=== PATIENT | female | born 1960 | race American Indian/Alaskan Native ===

== ENCOUNTER 2017-01-13 20:12 | Emergency (ER) | payer MEDICARE ==
--- NOTE | 2017-01-13 21:31 | Emergency Department Report ---
HPI - General Chief Complaint: Cardiac Arrest/CPR Time Seen by Provider: 01/13/17 21:00 - HPI HPI: This is a 56 year-old female presents to the emergency department from [place] by EMS in cardiac arrest. The patient appears to have a history of CVA, right-sided hemiparesis, dysphagia with PEG tube, chronic tracheostomy, atrial fibrillation. Apparently the patient just got back from [facility] today. The facility says that the patient was last seen alive about 10 minutes prior to the EMS call. The facility found her unresponsive and pulseless. EMS intubated the tracheostomy and started ACLS protocol. The patient was in asystole the entire time and they worked on her for about 30 minutes prior to presentation. She received 4 doses of epinephrine and one of sodium bicarbonate without any return of spontaneous circulation. ED Review of Systems ROS: Stated complaint: CARDIAC ARREST Other details as noted in HPI Comment: Unobtainable due to pts medical conditions Physical Exam - Physical Exam Physical Exam: GENERAL: Patient is ill-appearing and unresponsive. HENT: Normocephalic. Atraumatic. EYES: Pupils are fixed and dilated. NECK: Supple. Trachea appears midline with a tracheostomy and the ET tube in place in the tracheostomy. CHEST/LUNGS: No spontaneous breath sounds. HEART/CARDIOVASCULAR: No spontaneous heart sounds. ABDOMEN: Abdomen is soft and there is no abdominal distention. SKIN: Skin is cool but dry. NEURO: She is unresponsive to any type of verbal or painful stimuli. MUSCULOSKELETAL: There is no obvious deformity. ED Medical Decision Making - Medical Decision Making This patient presented in cardiac arrest after already having ACLS protocol going on for 30 minutes and a suspected asystole and/or cardiac arrest time of about 40 minutes. She started received ACLS protocol with 4 rounds of epinephrine and one of sodium bicarbonate. When she got to [facility] we continued ACLS protocol. She was asystole on the monitor. She was given a dose of epinephrine. At the next rhythm check, patient was still asystolic and pulseless. The ultrasound was then used to look at the patient's heart and there was no squeeze, movement or even flutter. At this point time of was called. The patient's family came many hours later and they were notified of the patient's expiration. Critical Care Time: Yes Critical care time in (mins) excluding proc time.: 10 Critical care attestation.: If time is entered above; I have spent that time in minutes in the direct care of this critically ill patient, excluding procedure time. Critical care time was done on this patient and during her initial evaluation, supervision of ACLS protocol and discussion with the family. Critical Care Time: 10 minutes ED Disposition Clinical Impression: Cardiac arrest, Respiratory arrest Disposition: [id number] Is pt being admited?: No Referrals: PRIMARY CARE, [Primary Care Provider] - 3-5 Days
== END 2017-01-13 21:30 ==
LOC: ED 20:12
DX: I46.9 Cardiac arrest, cause unspecified (principal)
CPT/HCPCS: 99285